=== PATIENT | male | born 1960 | race Two or more races ===

== ENCOUNTER 2020-02-13 07:22 | Inpatient (IN) | payer OTHER ==
[2020-02-13] VITALS (10 sets, daily range): BP systolic 115–162; BP diastolic 63–88
[~2020-02-13] VITALS: Ht 182.9 cm; Wt 63.5 kg
[~2020-02-13 07:22] MED LIST: ASPIRIN81 MG ORAL; GLUCOPHAGE850 MG ORAL; HUMULIN N100 UNIT/1 SUBQ
[2020-02-13] MEDS ORDERED: LR 1000ml 1,000 ML IVLG SCH (10:42)
[2020-02-13] MEDS ORDERED: Metoclopramide 10mg/2ml Inj IVP PRN ×2 (10:45→14:30)
[2020-02-13] MEDS ORDERED: Midazolam 2mg/2ml Inj IVP PRN (10:45)
[2020-02-13] MEDS ORDERED: Hydromorphone 0.5mg/0.5ml inj IVP PRN (10:45)
[2020-02-13] MEDS ORDERED: Meperidine 25mg/0.5ml Inj (FOR RIGORS ONLY) IV PRN (10:45)
[2020-02-13] MEDS ORDERED: HYDROcodone/Acetamin 5/325 tab ORAL PRN (10:45)
[2020-02-13] MEDS ORDERED: DiphenhydrAMINE 50mg/ml Inj IVP PRN (10:45)
[2020-02-13] MEDS ORDERED: oxyCODONE HCL/Acetaminophen 5/325mg ORAL PRN (10:45)
[2020-02-13] MEDS ORDERED: Atropine Sulfate 0.4mg/ml inj IVP PRN (10:45)
[2020-02-13] MEDS ORDERED: Acetaminophen (Non formulary) 100 ML IV ONE (10:45)
[2020-02-13] MEDS ORDERED: HYDROcodone/Acetamin 7.5/325 tab ORAL PRN ×2 (10:45→14:30)
[2020-02-13] MEDS ORDERED: LORazepam Inj 2mg/ml 1ml IV PRN (10:45)
[2020-02-13] MEDS ORDERED: fentaNYL 100 mcg/2 mL IV PRN (10:45)
[2020-02-13] MEDS ORDERED: Labetalol 5mg/ml 20ml vial IV PRN (10:45)
--- NOTE | 2020-02-13 10:46 | Immediate Post-Op Evaluation ---
Immediate Post-Op Evalulation Immediate Post-Op Evalulation Procedure: B L4-5, L5-S1 Microdecompression Date of Evaluation: Feb 13, 2020 Time of Evaluation: 17:05 IV Fluids: 1000 LR Blood Products: 0 Estimated Blood Loss: 50 Urinary Output: 0 Blood Pressure Systolic: 162 Blood Pressure Diastolic: 85 Pulse Rate: 49 Respiratory Rate: 16 O2 Sat by Pulse Oximetry: 100 Temperature (Fahrenheit): 97 Pain Score (1-10): 3 Nausea: No Vomiting: No Complications 0 Patient Status: awake, reacts, patent, extubated, none Hydration Status: adequate Dru Grams Ancef IV Given Within 1 Hr of Incision: Yes Time Given: 14:21 Wilmer Fragoso MD Feb 13, 2020 10:46
[2020-02-13] MEDS ORDERED: fentaNYL 100 mcg/2 mL IV ONE (11:47)
[2020-02-13] MEDS ORDERED: Lidocaine 1% MPF 10mg/ml 5ml ONE ×2 (11:47→11:48)
[2020-02-13] MEDS ORDERED: Sodium Chloride 10ml vial INJ ONE (11:48)
[2020-02-13] MEDS ORDERED: Lidocaine 1% Plain 30 ml INJ ONE (12:50)
--- NOTE | 2020-02-13 12:55 | Anethesia Preoperative Eval ---
Anesthesia Pre-op PMH/ROS General Date of Evaluation: Feb 13, 2020 Time of Evaluation: 13:59 Anesthesiologist: Fouzia ASA Score: ASA 3 Mallampati Score Class I : Soft palate, uvula, fauces, pillars visible Class II: Soft palate, uvula, fauces visible Class III: Soft palate, base of uvula visible Class IV: Only hard plate visible Mallampati Classification: Class II Surgeon: Lupe Diagnosis: Back Pain Surgical Procedure: B L4-5, L5-S1 Microdecompression Anesthesia History: none Family History: no anesthesia problems Allergies: Coded Allergies: CLOPIDOGREL (Verified Allergy, Severe, Rash; swelling, 02/13/20) Medications: see eMAR Patient NPO?: Yes Past Medical History Cardiovascular: Reports: HTN, CAD - CABG Endocrine: Reports: DM PSxH Narrative: CABG Anesthesia Pre-op Phys. Exam Physician Exam Last Vital Signs Date Time Temp Pulse Resp B/P (MAP) Pulse Ox O2 Delivery O2 Flow Rate FiO2 02/13/20 11:27 Room Air 02/13/20 11:20 97.0 54 18 138/75 (96) 99 Constitutional: NAD Neurologic: CN 2-12 intact Cardiovascular: RRR Respiratory: CTA Gastrointestinal: S/NT/ND Airway Exam Mallampati Score: Class II MO: full ROM: full Teeth: missing, intact Anesthesia Pre-op A/P Risk Assessment & Plan Assessment: ASA 3 Plan: GA, SED, GlideScope Status Change Before Surgery: No Pre-Antibiotics Dru Grams Ancef IV Given Within 1 Hr of Incision: Yes Time Given: 14:21 Wilmer Fragoso MD Feb 13, 2020 12:55
[2020-02-13] MEDS ORDERED: NS Irrig 1000ml ONE (14:00)
[2020-02-13] MEDS ORDERED: LR 1000ml ONE (14:00)
[2020-02-13] MEDS ORDERED: propofoL 1,000mg/100ml IV ONE (14:00)
[2020-02-13] MEDS ORDERED: Sterile Water Irrig 1000ml IRRIG ONE (14:00)
[2020-02-13] MEDS ORDERED: Rocuronium Bromide 100mg/10ml Inj IV ONE (14:00)
[2020-02-13] MEDS ORDERED: Thrombin 5000 units spray kit TOPIC ONE (14:08)
[2020-02-13] MEDS ORDERED: Gelfoam Absorbable 1gm powder pkt TOPIC ONE (14:09)
[2020-02-13] MEDS ORDERED: Thrombin 5000 units TOPIC ONE (14:09)
[2020-02-13] MEDS ORDERED: Bupivacaine 0.5% Inj 30 ml vial INJ ONE (14:09)
[2020-02-13] MEDS ORDERED: Bacitracin 50000 Units Vial ONE (14:09)
[2020-02-13] MEDS ORDERED: Gelfoam Size TOPIC ONE (14:09)
--- NOTE | 2020-02-13 14:17 | Pre-Procedure Note/Attestation ---
Pre-Procedure Note/Attestation Complete Prior to Procedure Planned Procedure: bilateral Procedure Narrative: bilateral lumbar 4 and 5 and 5 sacral microdecompression. Patient is not taking aspirin due to bleeding risk Indications for Procedure Pre-Operative Diagnosis: L4/5 and L5/S1 stenosis. Attestation I attest that I discussed the nature of the procedure; its benefits; risks and complications; and alternatives (and the risks and benefits of such alternatives ), prior to the procedure, with the patient (or the patient's legal inventory representative). I attest that, if there was a reasonable possibility of needing a blood transfusion, the patient (or the patient's legal inventory representative) was given the [place] Department [employer] standardized written summary, pursuant to the [employer] [place] Blood Safety Act ([place] Health and Safety Code # 1645, as amended). I attest that I re-evaluated the patient just prior to the surgery and that there has been no change in the patient's H&P, except as documented below: Silver Andrade MD Feb 13, 2020 14:17
--- NOTE | 2020-02-13 14:22 | Brief Operative Note ---
Immediate Post Operative Note Operative Note Chief Complaint: low back pain, lumbar radiculopathy Pre-op Diagnosis: lumbar stenosis traumatic spondyloarthropathy lumbar radiculopathy low back pain Procedure: Bilateral L4/5 and L5/S1 lumbar microdecompression Post-op Diagnosis: same as pre Post-op Diagnosis: same as pre-op Findings: consistent w/pre-op dx studies Surgeon: Dr. Andrade Casey Saw Operator: Lenny Martin PA-C Anesthesiologist: Dr. Askew Anesthesia: general Specimen: none Complications: none Condition: stable Fluids: per anesthesiology Estimated Blood Loss: minimal Drains: none Implant(s) used?: No Lenny Martin Feb 13, 2020 14:22
[2020-02-13] MEDS ORDERED: Milk of Magnesia 30ml Ud ORAL PRN (14:30)
[2020-02-13] MEDS ORDERED: Acetaminophen 650 MG SUPP RECTAL PRN (14:30)
[2020-02-13] MEDS ORDERED: Glycopyrrolate 0.2mg/ml 1ml Vial ONE ×2 (15:15→16:20)
[2020-02-13] MEDS ORDERED: Phenylephrine 10mg/ml Vial ONE (15:30)
[2020-02-13] MEDS ORDERED: Neostigmine 1mg/ml 10ml Inj ONE (16:20)
[2020-02-13] MEDS ORDERED: Insulin NPH SUBQ SCH (19:30)
--- NOTE | 2020-02-13 20:25 | General Progress Note ---
Assessment/Plan Assessment/Plan: low back pain, lumbar radiculopathy lumbar stenosis traumatic spondyloarthropathy lumbar radiculopathy low back pain Bilateral L4/5 and L5/S1 lumbar microdecompression PLAN 1. incentive spirometry 2. SCD 3. PT evaluation and therapy 4. Hydration 5. Pain management 6. discharge once stable with outpatient follow up Subjective Allergies: Coded Allergies: CLOPIDOGREL (Verified Allergy, Severe, Rash; swelling, 02/13/20) Subjective asked to follow up postop Objective Last 24 Hour Vital Signs Date Time Temp Pulse Resp B/P (MAP) Pulse Ox O2 Delivery O2 Flow Rate FiO2 02/13/20 17:48 97.2 48 15 151/78 100 Nasal Cannula 3 02/13/20 17:40 45 17 143/75 100 Nasal Cannula 3 02/13/20 17:30 46 14 132/76 100 Nasal Cannula 3 02/13/20 17:20 45 17 141/80 100 Simple Mask 6 02/13/20 17:10 47 16 143/82 100 Simple Mask 6 02/13/20 17:00 45 16 156/83 100 Simple Mask 6 02/13/20 16:54 97.0 48 16 162/88 100 Simple Mask 6 02/13/20 16:52 49 16 100 02/13/20 11:27 Room Air 02/13/20 11:20 97.0 54 18 138/75 (96) 99 Height (Feet): 6 Height (Inches): 0.00 Weight (Pounds): 140 Objective WDWN NAD clear breath sounds bilaterally without rhonchi or wheeze S1S2RR ness without MRG NABS nontender no HSM no CCE nonfocal Prakash Baker MD Feb 13, 2020 20:25
[2020-02-13] MEDS: NovoLOG Insulin Flexpen SUBQ SCH (20:38)
[2020-02-13] MEDS: HYDROcodone/Acetamin 7.5/325 tab ORAL PRN (20:39)
[2020-02-13] MEDS: ceFAZolin sod 1 GM in D5W 55 ML IV SCH (21:46)
[2020-02-14] VITALS: BP 117/67
[2020-02-14] MEDS: HYDROcodone/Acetamin 7.5/325 tab ORAL PRN ×2 (03:23→10:52)
[2020-02-14] MEDS: HYDROmorphone 1mg/ml Carpuject IVP PRN ×3 (03:32→20:31)
[2020-02-14 04:00] VITALS: BP 125/68
[2020-02-14] MEDS: ceFAZolin sod 1 GM in D5W 55 ML IV SCH ×2 (05:33→14:34)
[2020-02-14] MEDS: NovoLOG Insulin Flexpen SUBQ SCH ×4 (05:35→22:00)
[2020-02-14 05:54] LABS: EOSINOPHILS % (AUTO) 0.9 % (0.0-3.0); HEMATOCRIT 44.2 % (42.0-52.0); HEMOGLOBIN 13.8 G/DL (14.2-18.0); LYMPHOCYTES % (AUTO) 14.7 % (20.0-45.0); MEAN CORPUSCULAR VOLUME 91 FL (80-99); MONOCYTES % (AUTO) 7.9 % (1.0-10.0); NEUTROPHILS % (AUTO) 75.5 % (45.0-75.0); PLATELET COUNT 160 K/UL (150-450); RED BLOOD COUNT 4.84 M/UL (4.70-6.10); RED CELL DISTRIBUTION WIDTH 14.2 % (11.6-14.8); WHITE BLOOD COUNT 9.5 K/UL (4.8-10.8)
[2020-02-14 08:00] VITALS: BP 130/74
--- NOTE | 2020-02-14 08:58 | General Progress Note ---
Assessment/Plan Assessment/Plan: low back pain, lumbar radiculopathy lumbar stenosis traumatic spondyloarthropathy lumbar radiculopathy low back pain Bilateral L4/5 and L5/S1 lumbar microdecompression urinary hesitancy vision change PLAN 1. incentive spirometry 2. SCD 3. PT evaluation and therapy 4. Hydration 5. Pain management 6. add flomax 7. d/w surgery as to vision change and plan impression, plan, and exam edited and reviewed in detail care discussed with RN Subjective Allergies: Coded Allergies: CLOPIDOGREL (Verified Allergy, Severe, Rash; swelling, 02/13/20) Subjective difficulty with urine stream notes some vision change Objective Last 24 Hour Vital Signs Date Time Temp Pulse Resp B/P (MAP) Pulse Ox O2 Delivery O2 Flow Rate FiO2 02/14/20 04:00 98.8 54 18 125/68 (87) 97 02/14/20 00:00 98.0 61 19 117/67 (84) 98 02/13/20 21:00 Nasal Cannula 3.0 02/13/20 20:00 97.6 51 20 115/63 (80) 98 02/13/20 18:35 97.4 46 20 128/66 (86) 97 02/13/20 17:48 97.2 48 15 151/78 100 Nasal Cannula 3 02/13/20 17:40 45 17 143/75 100 Nasal Cannula 3 02/13/20 17:30 46 14 132/76 100 Nasal Cannula 3 02/13/20 17:20 45 17 141/80 100 Simple Mask 6 02/13/20 17:10 47 16 143/82 100 Simple Mask 6 02/13/20 17:00 45 16 156/83 100 Simple Mask 6 02/13/20 16:54 97.0 48 16 162/88 100 Simple Mask 6 02/13/20 16:52 49 16 100 02/13/20 11:27 Room Air 02/13/20 11:20 97.0 54 18 138/75 (96) 99 Intake and Output 02/13/20 02/14/20 19:00 07:00 Intake Total 650 ml 810 ml Balance 650 ml 810 ml Intake Oral 500 ml IV Total 150 ml 810 ml # Voids 1 Laboratory Tests 02/14/20 05:20: White Blood Count 9.5, Red Blood Count 4.84, Hemoglobin 13.8L, Hematocrit 44.2, Mean Corpuscular Volume 91, Mean Corpuscular Hemoglobin 28.4, Mean Corpuscular Hemoglobin Concent 31.1L, Red Cell Distribution Width 14.2, Platelet Count 160, Mean Platelet Volume 9.0, Neutrophils (%) (Auto) 75.5H, Lymphocytes (%) (Auto) 14.7L, Monocytes (%) (Auto) 7.9, Eosinophils (%) (Auto) 0.9, Basophils (%) (Auto ) 1.0 Height (Feet): 6 Height (Inches): 0.00 Weight (Pounds): 140 Objective WDWN NAD clear breath sounds bilaterally without rhonchi or wheeze S1S2RR ness without MRG NABS nontender no HSM no CCE nonfocal Prakash Baker MD Feb 14, 2020 08:58
--- NOTE | 2020-02-14 09:13 | 48 Hour Post Anesthesia Eval ---
Post Anesthesia Evaluation Procedure: B L4-5, L5-S1 Microdecompression Date of Evaluation: Feb 14, 2020 Time of Evaluation: 09:12 Blood Pressure Systolic: 130 0: 74 Pulse Rate: 55 Respiratory Rate: 18 Temperature (Fahrenheit): 99.8 O2 Sat by Pulse Oximetry: 92 Airway: patent Nausea: No Vomiting: No Pain Intensity: 2 Hydration Status: adequate Cardiopulmonary Status: Stable Mental Status/LOC: patient returned to baseline Follow-up Care/Observations: 0 Post-Anesthesia Complications: 0 Follow-up care needed: N/A Wilmer Fragoso MD Feb 14, 2020 09:13
[2020-02-14] MEDS: Docusate Sod/Senna tab ORAL SCH ×2 (09:22→18:54)
[2020-02-14] MEDS: Tamsulosin 0.4mg cap ORAL SCH ×2 (09:22→18:00)
[2020-02-14] MEDS: metFORMIN 500mg tab ORAL SCH (09:22)
[2020-02-14] MEDS: Insulin NPH SUBQ SCH (09:23)
--- NOTE | 2020-02-14 09:59 | Diagnostic Imaging Report ---
Indication: Vision changes. Technique: Continuous helical CT scanning of the head was performed utilizing automated exposure control without intravenous contrast material. Axial and coronal reconstructions were obtained. Comparison: None CT dose: Total DLP 1045.5 mGycm; CTDI vol 53.4 mGy Findings: There is no acute intracranial hemorrhage, mass effect or cortical edema. There is no shift of midline structures. The ventricles, cisterns and sulci are within normal limits for age. Minimal periventricular hypoattenuation is seen, a nonspecific finding. Visualized mastoid air cells and paranasal sinuses are unremarkable. No focal lesions of the bony calvarium or soft tissues of the scalp are seen. IMPRESSION: No evidence of acute intracranial hemorrhage, mass effect or cortical edema. MRI may be obtained for more sensitive evaluation as clinically indicated. The CT scanner at [facility] is accredited by the [place] [employer] and the scans are performed using protocols designed to limit radiation exposure to as low as reasonably achievable to attain images of sufficient resolution adequate for diagnostic evaluation.
[2020-02-14 12:00] VITALS: BP 114/59
[2020-02-14 15:58] VITALS: BP 135/65
[2020-02-14 20:00] VITALS: BP 129/64
--- NOTE | 2020-02-14 20:14 | Diagnostic Imaging Report ---
EXAM: US Duplex Bilateral Lower Extremities Veins CLINICAL HISTORY: PAIN TECHNIQUE: Real-time duplex ultrasound scan of the bilateral lower extremity veins integrating B-mode two-dimensional vascular structure, Doppler spectral analysis, color flow Doppler imaging and compression. COMPARISON: No relevant prior studies available. FINDINGS: Negative for evidence of DVT bilateral lower extremities.
[2020-02-15] VITALS: BP 119/73
[2020-02-15] MEDS: HYDROmorphone 1mg/ml Carpuject IVP PRN ×3 (00:21→12:45)
[2020-02-15 04:00] VITALS: BP 113/65
[2020-02-15] MEDS: NovoLOG Insulin Flexpen SUBQ SCH ×4 (06:17→21:45)
[2020-02-15 08:00] VITALS: BP 148/96
[2020-02-15] MEDS: Tamsulosin 0.4mg cap ORAL SCH ×2 (08:57→17:01)
[2020-02-15] MEDS: Docusate Sod/Senna tab ORAL SCH ×2 (09:00→17:05)
[2020-02-15] MEDS: metFORMIN 500mg tab ORAL SCH (09:00)
[2020-02-15] MEDS: Insulin NPH SUBQ SCH (09:10)
--- NOTE | 2020-02-15 10:38 | General Progress Note ---
Assessment/Plan Assessment/Plan: low back pain, lumbar radiculopathy lumbar stenosis traumatic spondyloarthropathy lumbar radiculopathy low back pain Bilateral L4/5 and L5/S1 lumbar microdecompression urinary hesitancy vision change calf pain PLAN 1. incentive spirometry 2. SCD 3. PT evaluation and therapy 4. Hydration 5. Pain management 6. add flomax 7. stable overall dc planning impression, plan, and exam edited and reviewed in detail care discussed with RN Subjective Allergies: Coded Allergies: CLOPIDOGREL (Verified Allergy, Severe, Rash; swelling, 02/13/20) Subjective calf pain negative venous negative head ct vision better Objective Last 24 Hour Vital Signs Date Time Temp Pulse Resp B/P (MAP) Pulse Ox O2 Delivery O2 Flow Rate FiO2 02/15/20 08:00 98.9 61 20 148/96 (113) 95 02/15/20 04:00 98.9 65 19 113/65 (81) 97 02/15/20 00:00 99.2 68 19 119/73 (88) 97 02/14/20 21:00 Room Air 02/14/20 20:00 99.7 60 19 129/64 (85) 97 02/14/20 15:58 99.4 51 18 135/65 (88) 97 02/14/20 14:31 100.3 02/14/20 12:15 99.2 95 02/14/20 12:10 102.4 02/14/20 12:00 101.7 61 20 114/59 (77) 91 Intake and Output 02/14/20 02/15/20 19:00 07:00 Intake Total 1200 ml Output Total 500 ml Balance 700 ml Intake Oral 800 ml IV Total 400 ml Output Urine Total 500 ml # Voids 5 Height (Feet): 6 Height (Inches): 0.00 Weight (Pounds): 140 Objective WDWN NAD clear breath sounds bilaterally without rhonchi or wheeze S1S2RR ness without MRG NABS nontender no HSM no CCE nonfocal alert and orient x 3 Prakash Baker MD Feb 15, 2020 10:38
[2020-02-15 12:00] VITALS: BP 153/69
[2020-02-15] MEDS ORDERED: oxyCODONE HCL/Acetaminophen 5/325mg ORAL PRN (13:00)
--- NOTE | 2020-02-15 14:27 | Diagnostic Imaging Report ---
EXAM: XR Chest, 1 View CLINICAL HISTORY: POST-OP TECHNIQUE: Frontal view of the chest. COMPARISON: No relevant prior studies available. FINDINGS: Lungs: No vascular congestion. No consolidation. Pleural space: Unremarkable. No pneumothorax. Heart: Coronary atherosclerosis, and/or arterial stents. Mediastinum: Unremarkable. Bones/joints: Sternotomy wires. Degenerative changes of the right acromioclavicular joint. IMPRESSION: Postoperative heart/mediastinum. No overt pulmonary edema.
[2020-02-15 16:00] VITALS: BP 121/74
[2020-02-15] MEDS: oxyCODONE HCL/Acetaminophen 5/325mg ORAL PRN ×2 (17:04→22:35)
[2020-02-15 20:00] VITALS: BP 124/63
[2020-02-16] VITALS: BP 131/91
[2020-02-16 04:00] VITALS: BP 112/56
[2020-02-16] MEDS: oxyCODONE HCL/Acetaminophen 5/325mg ORAL PRN ×2 (04:28→11:51)
[2020-02-16] MEDS: NovoLOG Insulin Flexpen SUBQ SCH ×2 (05:49→12:00)
[2020-02-16 08:00] VITALS: BP 120/68
[2020-02-16] MEDS: Tamsulosin 0.4mg cap ORAL SCH (09:00)
[2020-02-16] MEDS: Docusate Sod/Senna tab ORAL SCH (09:00)
--- NOTE | 2020-02-16 09:00 | General Progress Note ---
Assessment/Plan Assessment/Plan: low back pain, lumbar radiculopathy lumbar stenosis traumatic spondyloarthropathy lumbar radiculopathy low back pain Bilateral L4/5 and L5/S1 lumbar microdecompression urinary hesitancy vision change calf pain PLAN 1. incentive spirometry 2. SCD 3. PT evaluation and therapy 4. Hydration 5. Pain management 6. add flomax 7. stable overall dc planning today with outpatient follow up impression, plan, and exam edited and reviewed in detail care discussed with RN Subjective Allergies: Coded Allergies: CLOPIDOGREL (Verified Allergy, Severe, Rash; swelling, 02/13/20) Subjective calf pain negative venous low oxygen now normal cxr negative vision better Objective Last 24 Hour Vital Signs Date Time Temp Pulse Resp B/P (MAP) Pulse Ox O2 Delivery O2 Flow Rate FiO2 02/16/20 08:00 98.5 72 20 120/68 (85) 95 02/16/20 04:00 98.7 58 17 112/56 (74) 94 02/16/20 00:00 98.3 59 20 131/91 (104) 93 02/15/20 21:00 Room Air 02/15/20 20:00 99.3 58 20 124/63 (83) 97 02/15/20 16:00 99.0 90 20 121/74 (90) 97 02/15/20 12:00 97.1 56 21 153/69 (97) 97 Intake and Output 02/15/20 02/16/20 19:00 07:00 Intake Total 1520 ml Balance 1520 ml Intake Oral 1520 ml # Voids 3 Laboratory Tests 02/15/20 19:45: Arterial Blood pH 7.423, Arterial Blood Partial Pressure CO2 38.7, Arterial Blood Partial Pressure O2 96.6, Arterial Blood HCO3 24.7, Arterial Blood Oxygen Saturation 96.7, Arterial Blood Base Excess 0.4, Jamie Test Positive 02/15/20 20:45: Arterial Blood pH 7.415, Arterial Blood Partial Pressure CO2 37.6, Arterial Blood Partial Pressure O2 71.8L, Arterial Blood HCO3 23.6, Arterial Blood Oxygen Saturation 93.6L, Arterial Blood Base Excess -0.7, Jamie Test Positive Height (Feet): 6 Height (Inches): 0.00 Weight (Pounds): 140 Objective WDWN NAD clear breath sounds bilaterally without rhonchi or wheeze S1S2RR ness without MRG NABS nontender no HSM no CCE nonfocal alert and orient x 3 Prakash Baker MD Feb 16, 2020 09:00
[2020-02-16] MEDS: Insulin NPH SUBQ SCH (09:30)
[2020-02-16] MEDS: metFORMIN 500mg tab ORAL SCH (09:32)
[2020-02-16 12:09] VITALS: BP 145/77
[2020-02-16] MEDS ORDERED: PERCOCET 5-3251 EACH ORAL (14:06)
--- NOTE | 2020-02-17 10:48 | Diagnostic Imaging Report ---
XRAY L Spine 1V CLINICAL HISTORY: Back pain. COMPARISON: None FINDINGS: Fluoroscopy independent procedure performed for lumbar localization in the OR. 3.9 seconds of fluoroscopy time utilized by the ordering physician. Total cumulative dose is 1.16 mGy and 0.14665 Gy.cm2. Single digital spot image obtained. IMPRESSION: FLUOROSCOPY GUIDED PROCEDURE.
--- NOTE | 2020-02-18 10:30 | Operative Note - Dictated ---
DATE OF OPERATION: 02/13/2020 PREOPERATIVE DIAGNOSIS: Lateral recess stenosis with disk herniation, traumatic spondyloarthropathy, L4-L5, L5-S1. POSTOPERATIVE DIAGNOSIS: Lateral recess stenosis with disk herniation, traumatic spondyloarthropathy, L4-L5, L5-S1. PROCEDURE PERFORMED: Lumbar 4-5 and lumbar 5, sacral 1 bilateral hemilaminotomy, medial partial facetectomy, and microdecompression. SURGEON: Silver Andrade MD LOGISTICS SUPPLY OFFICER PHYSICIAN: Lenny Martin, Physician Vp Business Development. ANESTHESIOLOGIST: Wilmer Fragoso MD ANESTHESIA: General endotracheal, combined anesthetic. ESTIMATED BLOOD LOSS: Minimal. INDICATIONS FOR PROCEDURE: A pleasant gentleman with a significant traumatic spondyloarthropathy induced through an accident. The patient had pain corroborating with the patient's MRI findings. He has had subjective complaints that matched his objective tests. The patient was indicated for surgery. No guarantees of outcome were given. He was medically optimized. The patient also had L5-S1 spondylolisthesis that was immobile. Due to the patient's comorbid conditions and age, a more conservative surgery was recommended in the form of a decompression procedure. His spondylolisthesis at L5-S1 was stable and although a more definitive management may have been a fusion procedure with an anterior-posterior surgery at L5-S1, more conservative surgery was elected. The patient understood risks, benefits, and alternatives. No guarantees of outcome were given. The patient was medically optimized. On day of surgery, the patient's neurologic examination corroborated with his subjective complaints with EHL weakness bilaterally. PROCEDURE IN DETAIL: The patient was taken to the operating room, intubated by the anesthesiologist, appropriately positioned prone on the [place] frame with all bony prominences well padded. Eyes and genitalia were protected. Once the patient was safely positioned with the spine lift team prone, his lumbosacral spine was marked and prepped and draped in the usual sterile fashion. Antibiotics were delivered in usual customary fashion. Subsequently, once a surgical pause undertaken, the patient's lumbosacral spine was exposed with a longitudinal small incision at L4-L5 and L5-S1. Subsequently, the fascia was incised and then the interlaminar space at L4-L5 and L5-S1. Prone radiographs did not demonstrate any instability with the patient's spondylolisthesis being reduced in the prone position. Once the levels were confirmed, the microscope was pulled into the view and L4-L5 and L5-S1 levels were decompressed initially with a hemilaminotomy at the cephalad and caudal motion segment and medial partial facetectomy and then removal of ligamentum flavum and subsequent foraminotomy. Sequentially all foraminotomy and decompressions were completed. There were no pars defects noted. All nerve roots were decompressed adequately. There was no CSF leak. The wound was copiously irrigated and hemostasis was obtained with bipolar and FloSeal. After copious irrigation, the fascia was reapproximated with #1 Vicryl, 2-0 Vicryl for dermis, and 3-0 Monocryl for skin. There were no complications. The patient's dressings were applied and his spine lift team was utilized to turn the patient back on to the [facility]. Silver Andrade M.D. DR: OMKAR JOB#: [id number] CC:
--- NOTE | 2020-02-18 10:56 | Discharge Summary ---
Discharge Summary Hospital Course Date of Admission Feb 13, 2020 at 10:09 Date of Discharge Feb 16, 2020 at 14:49 Admitting Diagnosis traumatic spondyloarthropathy induced through an accident Reason for Hospitalization: Elective surgery ROSIBEL Scruggs is a 59 year old male who was admitted on Feb 13, 2020 at 10:09 for lumbago, traumatic spondyloarthropathy induced through an accident , lumbar radiculopathy . Patient was admitted for elective surgery. Consultations Dr Baker IM/pulmo Procedures s/p 02/13/[address] Andrade Lumbar L4-L5 and lumbar L5, sacral S1 bilateral hemilaminotomy, medial partial facetectomy, and microdecompression. Hospital Course status post surgery course of recovery uneventful initially IV fluids s/p perioperative antibiotics neurovascular status closely monitored, remained stable incision clean , dry and intact remained hemodynamically stable complained of calf pain, Venous Duplex BLE was negative for evidence of DVT bilateral lower extremities. pain management was addressed , pain was controlled ambulated with PT fall precautions maintained; safe for ambulation DVT prophylaxis provided use of incentive spirometry was encouraged while in the bed tolerated diet , IV fluids discontinued GI prophylaxis provided antiemetics were on board as needed blood sugar was closely monitored and managed with Metformin and NPH insulin, SSI was on board as needed outpatient regular f/up with PMD for BS and related complications management patient reported urinary hesitancy Flomax was added to medication regimen, patient voided freely bowel regimen instituted patient was stable for discharge discharge instructions provided follow up with surgeon in the office as advised FINAL DIAGNOSES Lateral recess stenosis with disk herniation Low back pain due to lumbar radiculopathy lumbar stenosis Traumatic spondyloarthropathy, L4-L5, L5-S1. s/p Lumbar L4-5 and lumbar L5, sacral S1 bilateral hemilaminotomy, medial partial facetectomy, and microdecompression. Urinary hesitancy -resolved DM with vision change Calf pain -resolved Discharge Medications Continued Medications: Metformin Hcl* (Glucophage*) 850 Mg Tablet 1000 MG ORAL DAILY for DM, TAB (This prescription has been renewed) Nph, Human Insulin Isophane (Humulin N) 100 Unit/1 Ml Vial 35 UNITS SUBQ DAILY for DM, VIAL (This prescription has been renewed) Oxycodone/Acetaminophen 5-325* (Percocet 5-325 Mg Tablet*) 1 Each Tablet 1 TAB ORAL Q4H PRN for For Pain, #40 TAB 0 Refills (This prescription has been renewed) Discharge Discharge Vital Signs Last Vital Signs Date Time Temp Pulse Resp B/P (MAP) Pulse Ox O2 Delivery O2 Flow Rate FiO2 02/16/20 12:09 97.8 59 20 145/77 (99) 97 02/16/20 09:00 Room Air 02/14/20 09:00 3.0 Discharge Disposition Patient was discharged home Discharge Instructions Discharge Instructions Special Instructions I have been assigned to complete a D/C Summary on this account. I was not involved in the patient management Mabel Rome NP Feb 18, 2020 10:56
--- NOTE | 2020-02-24 18:09 | Diagnostic Imaging Report ---
XRAY L Spine 1V CLINICAL HISTORY: Back pain. COMPARISON: None FINDINGS: Fluoroscopy independent procedure performed for lumbar localization in the OR. 3.9 seconds of fluoroscopy time utilized by the ordering physician. Total cumulative dose is 1.16 mGy and 0.91366 Gy.cm2. Single digital spot image obtained. IMPRESSION: FLUOROSCOPY GUIDED PROCEDURE.
== END 2020-02-16 14:49 | disposition home or self-care (01) | DRG 517 ==
LOC: SDSOVERFLO 10:09 → 3E 18:10
PROC: 01NB0ZZ Release Lumbar Nerve, Open Approach (ICD-10-PCS; principal; 2020-02-13 12:00)
PROC: 01NR0ZZ Release Sacral Nerve, Open Approach (ICD-10-PCS; principal; 2020-02-13 12:00)
DX: M48.061 Spinal stenosis, lumbar region without neurogenic claudication (principal); M47.26 Other spondylosis with radiculopathy, lumbar region; M43.16 Spondylolisthesis, lumbar region; M47.27 Other spondylosis with radiculopathy, lumbosacral region; R39.11 Hesitancy of micturition; H53.9 Unspecified visual disturbance; M79.606 Pain in leg, unspecified
CPT/HCPCS: 36415; 36600; 70450; 71045; 72020; 76000; 82803; 82962; 85025; 87081; 93970; 94003; 94150; C9399; J1815; J2370; J2405; J2710